=== PATIENT | male | born 1960 | race Caucasian/White ===

== ENCOUNTER 2020-05-03 13:18 | Outpatient (CLI) | payer OTHER, SELFPAY ==
--- NOTE | 2020-05-03 13:29 | ECHO_ITS ---
Patient Info Name: Rao Quesada Age: 60 years : 1960 Gender: Male Ht: 68 in Wt: 155 lbs BSA: 1.84 m2 HR: 58 bpm BP: 157 / 78 mmHg Technical Quality: Good Exam Date: 05/03/2020 1:36 PM Exam Location: [facility] Patient Status: Outpatient Admit Date: 05/03/2020 Staff Ordering Physician: Hortensia Martínez MD Chief Of Police: Luz Elena Urrutia RDCS Attending Provider: Hortensia Martínez MD Referring Physician: Tanya GOMEZ; Exam Type: CA echo doppler color flow Study Info Indications - aortic stenosis Complete two-dimensional, color flow and Doppler transthoracic echocardiogram is performed. Summary 1. Left ventricular chamber dimension is normal. 2. Left ventricular systolic function is normal, estimated at 65-70%. 3. There is mildly increased left ventricular wall thickness. 4. The left ventricular diastolic function is grade I diastolic dysfunction. 5. E/e' 11 is mildly elevated. 6. Global longitudinal strain is normal at -21.9%. 7. Left atrial chamber dimension is mildly enlarged. 8. There is severe aortic valve sclerosis. 9. There is mild aortic valve regurgitation. 10. There is moderate aortic valve stenosis with a peak velocity of 311 cm/s, mean gradient of 22 mmHg, and aortic valve area of 1.3 cm2. 11. The mitral valve has mildly calcified annulus. 12. There is mild mitral valve regurgitation. 13. There is trace tricuspid valve regurgitation. 14. No pulmonary hypertension, estimated pulmonary arterial systolic pressure is 30 mmHg. Left Ventricle E/e' 11 is mildly elevated. Global longitudinal strain is normal at -21.9%. Left ventricular chamber dimension is normal. Left ventricular systolic function is normal, estimated at 65-70%. There is mildly increased left ventricular wall thickness. The left ventricular diastolic function is grade I diastolic dysfunction. Right Ventricle Right ventricular chamber dimension is normal. Right ventricular systolic function is normal. Left Atria Left atrial chamber dimension is mildly enlarged. Right Atria Right atrial chamber dimension is normal. Aortic Valve The aortic valve is trileaflet. There is severe aortic valve sclerosis. There is moderate aortic valve stenosis with a peak velocity of 311 cm/s, mean gradient of 22 mmHg, and aortic valve area of 1.3 cm2. There is mild aortic valve regurgitation. Pulmonic Valve There is no pulmonic regurgitation. Mitral Valve The mitral valve has mildly calcified annulus. There is no mitral valve stenosis. There is mild mitral valve regurgitation. Tricuspid Valve There is trace tricuspid valve regurgitation. No pulmonary hypertension, estimated pulmonary arterial systolic pressure is 30 mmHg. Pericardium/Pleural There is no pericardial effusion. Inferior Vena Cava Normal inferior vena cava with >50% collapse upon inspiration consistent with normal right atrial pressure, 5 mmHg. Aorta The aortic root size at the sinus of Valsalva is normal. Left Ventricular Outflow Tract Name Value Normal LVOT 2D LVOT Diameter 2.0 cm LVOT Doppler LVOT Peak Gradient 7 mmHg
== END 2020-05-03 13:19 | disposition home or self-care (01) ==
LOC: ANHCARD 13:19
PROVIDERS: PCP Family Medicine; Visit Provider Family Medicine
DX: I35.0 Nonrheumatic aortic (valve) stenosis (principal); I51.7 Cardiomegaly
CPT/HCPCS: 93306

== ENCOUNTER 2022-10-14 12:36 | Outpatient (CLI) | payer OTHER, SELFPAY ==
--- NOTE | 2022-10-14 12:53 | ECHO_ITS ---
Patient Info Name: Rao Quesada Age: 62 years : 1960 Gender: Male Ht: 68 in Wt: 155 lbs BSA: 1.84 m2 HR: 65 bpm BP: 164 / 79 mmHg Technical Quality: Good Exam Date: 10/14/2022 1:36 PM Exam Location: [facility] Patient Status: Outpatient Admit Date: 10/14/2022 Staff Ordering Physician: Mike Rush PA-C Plug Grower: Jason Mcintosh RDCS Attending Provider: Mike Rush PA-C Referring Physician: Victor Manuel HAMILTON; Exam Type: CA echo doppler color flow Study Info Indications I35.0 - Nonrheumatic aortic (valve) stenosis Complete two-dimensional, color flow and Doppler transthoracic echocardiogram is performed. Summary 1. Complete two-dimensional, color flow and Doppler transthoracic echocardiogram is performed. 2. Left ventricular chamber dimension is normal. 3. Left ventricular systolic function is normal, estimated at 65-70%. 4. There is mildly increased left ventricular wall thickness. 5. The left ventricular diastolic function is grade I diastolic dysfunction. 6. E/e' 12 is mildly elevated. 7. Left atrial chamber dimension is moderately enlarged. 8. There is severe aortic valve sclerosis. 9. There is severe aortic valve stenosis with a peak velocity of 481 cm/s, mean gradient of 56 mmHg, and aortic valve area of 0.8 cm2. 10. There is mild aortic valve regurgitation. 11. There is trace mitral valve regurgitation. Left Ventricle E/e' 12 is mildly elevated. Left ventricular chamber dimension is normal. Left ventricular systolic function is normal, estimated at 65-70%. There is mildly increased left ventricular wall thickness. The left ventricular diastolic function is grade I diastolic dysfunction. Right Ventricle Right ventricular systolic function is normal and with normal TAPSE 2.4 cm. Right ventricular chamber dimension is normal. Left Atria Left atrial chamber dimension is moderately enlarged. Right Atria Right atrial chamber dimension is normal. Aortic Valve The aortic valve is trileaflet. There is severe aortic valve sclerosis. There is severe aortic valve stenosis with a peak velocity of 481 cm/s, mean gradient of 56 mmHg, and aortic valve area of 0.8 cm2. There is mild aortic valve regurgitation. Pulmonic Valve There is no pulmonic regurgitation. Mitral Valve There is no mitral valve stenosis. There is trace mitral valve regurgitation. Tricuspid Valve There is no tricuspid valve regurgitation. Pericardium/Pleural There is no pericardial effusion. Inferior Vena Cava Normal inferior vena cava with >50% collapse upon inspiration consistent with normal right atrial pressure, 5 mmHg. Aorta The aortic root size at the sinus of Valsalva is normal. Left Ventricular Outflow Tract Name Value Normal LVOT 2D LVOT Diameter 2.0 cm LVOT Doppler LVOT Peak Gradient 6 mmHg LVOT Mean Gradient 4 mmHg LVOT VTI 33 cm LVOT VTI/AV VTI Ratio 0.3 LVOT Stroke Volume 101 ml LVOT CO
== END 2022-10-14 12:37 | disposition home or self-care (01) ==
PROVIDERS: PCP Physician Assistant; Visit Provider Physician Assistant
DX: N40.0 Benign prostatic hyperplasia without lower urinary tract symptoms (principal); I10 Essential (primary) hypertension; E11.9 Type 2 diabetes mellitus without complications; I08.0 Rheumatic disorders of both mitral and aortic valves
CPT/HCPCS: 93306

== ENCOUNTER 2022-10-24 09:20 | Outpatient (CLI) | payer OTHER, SELFPAY ==
[2022-10-24 19:07] LABS: Kit Draw Collected
== END 2022-10-24 09:21 | disposition home or self-care (01) ==
LOC: ANHGOSHLAB 09:22
PROVIDERS: PCP Physician Assistant; Visit Provider Physician Assistant
DX: N40.0 Benign prostatic hyperplasia without lower urinary tract symptoms (principal); I35.0 Nonrheumatic aortic (valve) stenosis; E11.9 Type 2 diabetes mellitus without complications; I10 Essential (primary) hypertension; Z12.5 Encounter for screening for malignant neoplasm of prostate
CPT/HCPCS: 36415

== ENCOUNTER 2023-06-02 15:18 | Outpatient (CLI) | payer MEDICARE, SELFPAY ==
[2023-06-02 19:19] LABS: Basophils Absolute Auto 0.1 K/mm3 (0.0-0.1); Basophils Percent Auto 1.7 % (0.2-1.2); Eosinophils Absolute Auto 0.2 K/mm3 (0-0.3); Eosinophils Percent Auto 4.5 % (0-4.4); Hematocrit 37.4 % (42.0-52.0); Hemoglobin 12.6 g/dL (14.0-18.0); Immature Granulocyte Absolute 0.01 K/mm3 (0.00-0.031); Immature Granulocyte Percent A 0.2 % (0-0.5); Lymphocytes Absolute Auto 1.05 K/mm3 (0.9-3.2); Lymphocytes Percent Auto 22.4 % (18.3-44.2); Mean Corpuscular HGB Conc 33.7 g/dl (32-36); Mean Corpuscular Hemoglobin 31.3 pg (26-34); Mean Platelet Volume 9.2 fl (7.4-10.4); Monocytes Absolute Auto 0.5 K/mm3 (0.1-0.6); Monocytes Percent Auto 11.1 % (2.6-8.5); Neutrophils Absolute Auto 2.8 K/mm3 (1.3-6.7); Neutrophils Percent Auto 60.1 % (45.5-73.1); Platelet Count Result 186 k/mm3 (150-375); Red Blood Count 4.02 M/mm3 (4.6-6.20); Red Cell Distribution Width 12.5 % (11.5-14.5); White Blood Count 4.7 K/mm3 (4.5-10.0)
== END 2023-06-02 15:19 | disposition home or self-care (01) ==
LOC: ANHGOSHLAB 15:19
PROVIDERS: Visit Provider Physician Assistant
DX: D72.819 Decreased white blood cell count, unspecified (principal)
CPT/HCPCS: 36415; 85025

== ENCOUNTER 2023-12-22 19:41 | Emergency (ER) | payer MEDICARE, SELFPAY ==
--- NOTE | ~2023-12-22 | XR_ITS ---
EXAMINATION: XR chest 1V portable DATE: 12/22/2023 20:33 INDICATION: Chest pain TECHNIQUE: frontal view of the chest was obtained. COMPARISON: None FINDINGS: Mild linear discoid atelectasis in the bilateral lower lung zones. No other airspace opacities, pulmo nary edema, pleural effusion or pneumothorax. The cardiomediastinal silhouette is normal. IMPRESSION: 1. Mild discoid atelectasis at the bilateral lower lung zones. No other acute cardiopulmonary disease . Reviewed, dictated and finalized at location A. H DRIVER IMPRESSION: 1. Mild discoid atelectasis at the bilateral lower lung zones. No other acute c ardiopulmonary disease.
--- NOTE | 2023-12-22 19:42 | ECG_ITS ---
Measurements Intervals [place] Rate: 57 P: 58 AR: 154 QRS: 72 QRSD: 102 T: 44 QT: 421 QTc: 410 Interpretive Statements SINUS BRADYCARDIA MINIMAL VOLTAGE CRITERIA FOR LVH, CONSIDER NORMAL VARIANT [MEETS CRITERIA IN ONE OF: R(aVL), S(V1), R(V5), R(V5/V6)+S(V1)] ABNORMAL ECG NO PREVIOUS ECG AVAILABLE FOR COMPARISON Electronically Signed On 12-23-2023 11:44:29 POWER SYSTEM OPERATOR by Farrukh Miranda M.D.
[2023-12-22 19:47] VITALS: BP 177/76; PULSE 66; RESP 18; TEMP 36.6; O2SAT 100
[2023-12-22 20:29] LABS: Basophils Absolute Auto 0.1 K/mm3 (0.0-0.1); Basophils Percent Auto 1.1 % (0.2-1.2); Eosinophils Absolute Auto 0.2 K/mm3 (0-0.3); Eosinophils Percent Auto 4.1 % (0-4.4); Hematocrit 38.9 % (42.0-52.0); Hemoglobin 13.3 g/dL (14.0-18.0); Immature Granulocyte Absolute 0.01 K/mm3 (0.00-0.031); Immature Granulocyte Percent A 0.2 % (0-0.5); Lymphocytes Absolute Auto 1.37 K/mm3 (0.9-3.2); Lymphocytes Percent Auto 25.3 % (18.3-44.2); Mean Corpuscular HGB Conc 34.2 g/dl (32-36); Mean Corpuscular Hemoglobin 31.2 pg (26-34); Mean Corpuscular Volume 91.3 fl (80-100); Mean Platelet Volume 8.7 fl (7.4-10.4); Monocytes Absolute Auto 0.7 K/mm3 (0.1-0.6); Neutrophils Absolute Auto 3.1 K/mm3 (1.3-6.7); Neutrophils Percent Auto 57.3 % (45.5-73.1); Platelet Count Result 182 k/mm3 (150-375); Red Blood Count 4.26 M/mm3 (4.6-6.20); Red Cell Distribution Width 12.6 % (11.5-14.5); White Blood Count 5.4 K/mm3 (4.5-10.0)
[2023-12-22 20:39] LABS: Magnesium 2.2 mg/dL (1.6-2.3)
[2023-12-22 20:40] LABS: Alanine Aminotransferase 25 U/L (6-50); Albumin Level 4.3 g/dL (3.5-5.1); Alkaline Phosphatase 72 U/L (38-126); Anion Gap 7 mmol/L (8-16); Aspartate Amino Transferase 37 U/L (17-59); Bilirubin,Total 0.8 mg/dL (0.2-1.3); Blood Urea Nitrogen 14 mg/dL (9-20); Calcium 9.3 mg/dL (8.4-10.2); Carbon Dioxide 27 mmol/L (22-30); Chloride 98 mmol/L (98-107); Estimated CRCL calculation 88 ml/min; Estimated Glomerular Filt Rate > 60; Glucose 105 mg/dL (65-110); Lipase 85 U/L (23-300); Sodium 132 mmol/L (137-145)
[2023-12-22 20:51] LABS: Troponin I < 0.012 ng/mL (0.000-0.034)
--- NOTE | 2023-12-22 20:51 | ED.CHESTPAIN ---
HPI - Chest Pain General Chief Complaint: Chest Pain Stated Complaint: chest pain Time Seen by Provider: 12/22/23 19:55 Source: patient and family Limitations: no limitations History of Present Illness HPI narrative: Patient is a 63-year-old male presents to the emergency department complaining of chest pain. Patient states the pain started around 1:00 p.m. 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 Patient denies any shortness of breath. Patient denies any recent injuries or recent illness. Patient admits to history of aortic stenosis for which he is known to Dr. Nassar here and has had echocardiogram as recent as October and was told that they were surprised he was asymptomatic and if he develops any symptoms to come to the emergency department. Patient is to history of high blood pressure and diabetes. Patient denies being a smoker. Patient denies family history of early heart disease. Patient denies nausea, vomiting, diarrhea, melena, hematochezia, urinary discomfort abdominal pain, numbness, fever, history of blood clots, unilateral lower extremity swelling, weakness, sore throat, nasal congestion. Patient admits to chronic seasonal allergies for which she will frequently get a cough and admits to slight cough without any significant sputum production. Related Data Home Medications Medication Instructions Recorded Confirmed diclofenac sodium 1 % topical gel 2 g topical QID 05/19/22 11/12/23 (Voltaren Arthritis Pain) Allergies Allergy/AdvReac Type Severity Reaction Status Date / Time No Known Allergies Allergy Verified 12/22/23 21:12 Review of Systems Review of Systems: A 10 system review of systems was completed on the patient and is negative except for what is stated in the HPI. Nursing and ancillary documentation was reviewed. FOR[facility]LY [facility], [facility] Family History Family History Mother Diabetes mellitus Sibling Diabetes mellitus Social History Social History Social History: caffeine daily- 1 pot coffee Smoking status: Never smoker Alcohol intake: current Drinks per week: 30 Alcohol use details: beer Substance use: never Substance use type: does not use Do You Feel Safe in your Home?: Yes Lack of Transportation: No Lack of Food: Never True Current Housing: I Have Housing Concerned About Future Housing: No Difficulty Paying Gas/Electric Bills: No Difficulty Paying for Meds: No Currently Unemployed: No Education: High School Diploma/GED Difficulty w/ Childcare or Family Care: No Comments At time of signature, I have reviewed and agree with nursing past medical, surgical, social and family history unless otherwise noted. Please see the nursing chart for further information. There is no relevant family history pertinent to the presenting complaint. Exam Narrative: CONST: No acute distress. Well nourished. HENMT: Head is normocephalic and atraumatic. Moist mucous membranes. No posterior oropharynx erythema. EYES: No conjunctival icterus, injection, or pallor. PERRL. NECK: No meningeal signs. No JVD. RESP: Able to speak in full sentences. Normal respiratory effort. CTAB. CARDIO: Regular rate. Regular rhythm. 2+ DP and radial pulses bilaterally. 2+ holosystolic murmur best appreciated at the aortic post. GI: Nondistended. No tenderness to palpation. Soft. : No CVA tenderness to palpation. SKIN: No rashes or lesions noted on exposed skin. NEURO: Oriented x3. Moves all extremit
[2023-12-22 21:02] LABS: D Dimer 0.32 ug/mL (<0.48)
[2023-12-22 21:04] LABS: Partial Thromboplastin Time 40.2 SECONDS (22.3-36.8)
[2023-12-22] MEDS: ASPIRIN 81 MG CHEWABLE TABLET 324 MG PO (21:08)
[2023-12-22 21:10] VITALS: BP 162/75; PULSE 67; RESP 15; O2SAT 100; O2SAT 99
[2023-12-22 21:18] LABS: Influenza A QL RT-PCR Negative (Negative); Influenza B QL RT-PCR Negative (Negative); RSV RNA, RT-PCR Negative (Negative); SARS-CoV-2 RNA PCR Negative (Negative)
[2023-12-22] MEDS: FAMOTIDINE 20 MG/2 ML VIAL IV PUSH (22:37)
[2023-12-22] MEDS: MAG HYDROX/AL HYDROX/SIMETH 30 ML UDC PO (22:37)
[2023-12-22 22:48] VITALS: BP 146/68; PULSE 60; RESP 15; O2SAT 100
--- NOTE | 2023-12-22 23:06 | ECG_ITS ---
Measurements Intervals [place] Rate: 60 P: 35 NM: 166 QRS: 68 QRSD: 101 T: 20 QT: 427 QTc: 429 Interpretive Statements SINUS RHYTHM NONSPECIFIC ST & T-WAVE ABNORMALITY ABNORMAL ECG COMPARED TO ECG 12/22/2023 19:46:25 SINUS RHYTHM NOW PRESENT T-WAVE ABNORMALITY NOW PRESENT Electronically Signed On 12-23-2023 11:45:57 FRUIT THINNER by Farrukh Miranda M.D.
[2023-12-22 23:17] LABS: Troponin I < 0.012 ng/mL (0.000-0.034)
[2023-12-22 23:31] VITALS: BP 148/64; PULSE 63; RESP 18; O2SAT 98
== END 2023-12-22 23:33 | disposition home or self-care (01) ==
PROVIDERS: Emergency Medicine; Emergency Provider Student in an Organized Health Care Education/Training Program; PCP Family Medicine
DX: R07.9 Chest pain, unspecified (principal); I35.0 Nonrheumatic aortic (valve) stenosis; R00.1 Bradycardia, unspecified; Z20.822 Contact with and (suspected) exposure to COVID-19
CPT/HCPCS: 36415; 71045; 80053; 83690; 83735; 84484; 85025; 85380; 85610; 85730; 87637; 93005; 96374; 99284; A9270

== ENCOUNTER 2024-01-11 00:14 | Day surgery (SDC) | payer MEDICARE, SELFPAY ==
[2024-01-08 15:35] VITALS: BMI 23.6
[2024-01-11] VITALS (12 sets, daily range): BP systolic 106–139; BP diastolic 59–94; PULSE 46–59; RESP 10–17; TEMP 36.7; O2SAT 97–98; BMI 24.6
[2024-01-11 07:33] LABS: Basophils Absolute Auto 0.1 K/mm3 (0.0-0.1); Basophils Percent Auto 1.5 % (0.2-1.2); Eosinophils Absolute Auto 0.3 K/mm3 (0-0.3); Eosinophils Percent Auto 7.8 % (0-4.4); Hematocrit 42.2 % (42.0-52.0); Hemoglobin 14.2 g/dL (14.0-18.0); Immature Granulocyte Absolute 0.01 K/mm3 (0.00-0.031); Immature Granulocyte Percent A 0.3 % (0-0.5); Lymphocytes Absolute Auto 1.09 K/mm3 (0.9-3.2); Lymphocytes Percent Auto 32.5 % (18.3-44.2); Mean Corpuscular HGB Conc 33.6 g/dl (32-36); Mean Corpuscular Hemoglobin 30.9 pg (26-34); Mean Corpuscular Volume 91.9 fl (80-100); Mean Platelet Volume 9.3 fl (7.4-10.4); Monocytes Absolute Auto 0.4 K/mm3 (0.1-0.6); Monocytes Percent Auto 12.2 % (2.6-8.5); Neutrophils Absolute Auto 1.5 K/mm3 (1.3-6.7); Neutrophils Percent Auto 45.7 % (45.5-73.1); Platelet Count Result 206 k/mm3 (150-375); Red Blood Count 4.59 M/mm3 (4.6-6.20); Red Cell Distribution Width 12.7 % (11.5-14.5); White Blood Count 3.4 K/mm3 (4.5-10.0)
[2024-01-11 07:42] LABS: Anion Gap 5 mmol/L (8-16); Blood Urea Nitrogen 13 mg/dL (9-20); Carbon Dioxide 26 mmol/L (22-30); Chloride 103 mmol/L (98-107); Estimated CRCL calculation 88 ml/min; Estimated Glomerular Filt Rate > 60; Glucose 119 mg/dL (65-110); Potassium 4.2 mmol/L (3.4-5.0); Sodium 134 mmol/L (137-145)
--- NOTE | 2024-01-11 08:18 | WPDMODSED ---
Moderate Sedation Note-Pt Data Patient Data Diagnosis: Symptomatic aortic stenosis Present Complaint: BRAND/ recent syncopal episodes/recent chest pain episode Procedure to be performed/Plan: right and left heart catheterization Allergies Allergy/AdvReac Type Severity Reaction Status Date / Time No Known Allergies Allergy Verified 01/11/24 07:19 Home Medications Medication Instructions Recorded Confirmed Type diclofenac sodium 1 % topical gel 2 g topical QID 05/19/22 01/08/24 History (Voltaren Arthritis Pain) sildenafil 50 mg tablet 50 mg PO DAILY PRN sexual activity 06/02/23 01/08/24 Rx #30 tabs lisinopril 20 mg tablet 20 mg PO DAILY #90 tabs 10/30/23 01/11/24 Rx gabapentin 100 mg capsule 100 mg PO BID #180 caps 11/11/23 01/08/24 Rx metformin 500 mg tablet,extended See Rx Instructions .Route 12/10/23 01/08/24 Rx release 24 hr .COMPLEX #90 tabs acetaminophen 500 mg tablet 500 mg PO Q6H PRN pain #30 tabs 12/22/23 01/08/24 Rx Current Medications: Active Medications Sodium Chloride (Normal Saline Iv) 500 mls @ 100 mls/hr IV CONT .Q5H GENE Sedation/Anesthesia: No previous sedation/anesthesia problems (including family history). [facility] Family History Family History Mother Diabetes mellitus Sibling Diabetes mellitus Social History Social History Social History: caffeine daily- 1 pot coffee Smoking status: Never smoker Alcohol intake: former Drinks per week: 30 Alcohol use details: beer Substance use: never Substance use type: does not use Do You Feel Safe in your Home?: Yes Lack of Transportation: No Lack of Food: Never True Current Housing: I Have Housing Concerned About Future Housing: No Difficulty Paying Gas/Electric Bills: No Difficulty Paying for Meds: No Currently Unemployed: No Education: High School Diploma/GED Difficulty w/ Childcare or Family Care: No Living arrangements: alone Spiritual care concerns: No Mod Sed Physical Exam Physical Exam Pre Procedural Exam: Normal: Appearance, Neck, Throat, Airway, Lungs, Heart Size ( grade 2/6 late peaking crescendo decrescendo murmur audible at the base no aortic regurgitation audible), Heart Rate, Heart Rhythm, Neuro Exam and Extremities Hours since solid foods: 12 Hours since liquid intake: 12 Mallampati Classification: class II Internal Medicine - PN: Obj Da Vital Signs Vital Signs: Vital Signs - 24 hr 01/11/24 07:21 Temperature 36.7 C Pulse Rate 54 L Respiratory Rate 14 Blood Pressure 130/64 Pulse Oximetry 97 Oxygen Delivery Room Air Meds/Results Medications: Active Medications Generic Name Dose Route Start Last Admin Trade Name Jorge PRN Reason Stop Dose Admin Sodium Chloride 500 mls @ 100 mls/hr 01/11/24 07:00 Normal Saline Iv IV CONT .Q5H GENE Labs 01/11/24 07:27 01/11/24 07:27 Labs: Laboratory Results - last 24 hr 01/11/24 07:27 WBC 3.4 L RBC 4.59 L Hgb 14.2 Hct 42.2 MCV 91.9 MCH 30.9 MCHC 33.6 RDW 12.7 Plt Count 206 MPV 9.3 Immature Gran % (Auto) 0.3 Neut % (Auto) 45.7 Lymph % (Auto) 32.5 [place] % (Auto) 12.2 H Eos % (Auto) 7.8 H Baso % (Auto) 1.5 H Lymph # (Auto) 1.09 [place] # (Auto) 0.4 Eos # (Auto) 0.3 Baso # (Auto) 0.1 Abs Immat Gran (auto) 0.01 Absolute Neuts (auto) 1.5 Absolute Nucleated RBC 0.0 Nucleated RBC % 0.0 Sodium 134 L Potassium 4.2 Chloride 103 Carbon Dioxide 26 Anion Gap 5 L BUN 13 Creatinine 0.70 Estim Creat Clear Calc 88 Estimated GFR > 60 Glucose 119 H Calcium 9.0 ASA Classification/Sedation ASA Classification/Sedation ASA Class: III Emergent: No Risks: Risks, benefits and alternatives explained and patient/family accepted plan for sedation. Patient re-evaluated immediately prior to sedation.
--- NOTE | 2024-01-11 08:21 | PM.IMHP ---
H&P: HPI History of Present Illness Date/Time: 01/11/24 08:21 Chief Complaint: recent syncopal episode, recent episode of chest pain, no symptoms today Narrative: this is a 63-year-old man who is known to me with a history of aortic valve stenosis who has been followed in the outpatient setting. He also has a history of hypertension managed with BILLY-inhibitor. Presents to the hospital today for scheduled right left heart catheterization this morning in anticipation of working him up is a candidate for aortic valve replacement. He had asymptomatic aortic stenosis until follow-up appointment October of 2023 at which time he reported episode of syncope while he was deer hunting. He at that time in the office was asymptomatic and because of this incident right left heart catheterization was recommended. At that time the patient declined wishing to consider this decision before going ahead. Between then and today he had a visit to the emergency room with an episode of chest pain in the middle of December. Following that incident he reconsider his decision and scheduled catheterization for today. Review of Systems Constitutional: Constitutional: Reports no additional constitutional complaints Eyes: Eyes: Reports no additional eye complaints ENT: Reports system reviewed and no additional complaints, except as documented Cardiovascular: Cardiovascular: Reports chest pain Respiratory: Respiratory: Reports dyspnea on exertion Gastrointestinal: Gastrointestinal: Reports no additional gastrointestinal complaints Musculoskeletal: Musculoskeletal: Reports no additional musculoskeletal complaints Integumentary/Breasts: Skin/Breast: Reports system reviewed and no additional complaints, except as docu Neurologic: Reports system reviewed and no additional complaints, except as documented [facility] Family History Family History Mother Diabetes mellitus Sibling Diabetes mellitus Social History Social History Social History: caffeine daily- 1 pot coffee Smoking status: Never smoker Alcohol intake: former Drinks per week: 30 Alcohol use details: beer Substance use: never Substance use type: does not use Do You Feel Safe in your Home?: Yes Lack of Transportation: No Lack of Food: Never True Current Housing: I Have Housing Concerned About Future Housing: No Difficulty Paying Gas/Electric Bills: No Difficulty Paying for Meds: No Currently Unemployed: No Education: High School Diploma/GED Difficulty w/ Childcare or Family Care: No Living arrangements: alone Spiritual care concerns: No Meds Home Medications and Allergies Home Medications Medication Instructions Recorded Confirmed Type diclofenac sodium 1 % topical gel 2 g topical QID 05/19/22 01/08/24 History (Voltaren Arthritis Pain) sildenafil 50 mg tablet 50 mg PO DAILY PRN sexual activity 06/02/23 01/08/24 Rx #30 tabs lisinopril 20 mg tablet 20 mg PO DAILY #90 tabs 10/30/23 01/11/24 Rx gabapentin 100 mg capsule 100 mg PO BID #180 caps 11/11/23 01/08/24 Rx metformin 500 mg tablet,extended See Rx Instructions .Route 12/10/23 01/08/24 Rx release 24 hr .COMPLEX #90 tabs acetaminophen 500 mg tablet 500 mg PO Q6H PRN pain #30 tabs 12/22/23 01/08/24 Rx Allergies Allergy/AdvReac Type Severity Reaction Status Date / Time No Known Allergies Allergy Verified 01/11/24 07:19 Vital Signs Vital Signs - 24 hr 01/11/24 07:21 Temperature 36.7 C Pulse Rate 54 L Respiratory Rate 14 Blood Pressure 130/64 Pulse Oximetry 97 Oxygen Delivery Room Air Exam Const: General: comfortable Other: Well-developed well-nourished white male comfortable cooperative no distress HENMT: Mouth: Yes moist mucous membranes Eyes: Sclera: sclerae normal Neck: Neck: supple and no JVD Other: delayed carotid pulses bilat
--- NOTE | 2024-01-11 09:23 | WPDCARDPROC ---
Cardiac Cath Procedure Note Date of procedure:: 01/11/24 Performing physician:: Leonard Stephens MD Indication:: symptomatic aortic stenosis Brief clinical history:: this is a 63-year-old man with hypertension who has been followed as an outpatient for aortic valve stenosis. He has recently become symptomatic with his with symptoms of chest pain and an episode of syncope. He is scheduled for right left heart catheterization today as part of his workup for aortic valve replacement. Procedure Procedure performed:: Right heart catheterization left heart catheterization with coronary angiography and measurement of aortic valve gradient and calculation of aortic valve area Sedation/Medication given:: fentanyl 25 mg Versed 2 mg case start time 836 a.m. case end time 9:20 a.m. sedation provided by Tiarra Martin RN, trained observer Access site:: right femoral artery, right femoral vein Estimated blood loss:: 25 cc Procedure note:: patient was brought to the cardiac catheterization lab in the postabsorptive state where the right femoral triangle was prepared and draped in the usual fashion. Anesthesia was provided with 20 cc lidocaine infiltrated locally. Using the modified Seldinger technique the right common femoral artery was punctured and a 6 Brazilian 45 cm sheath was placed into the central aorta. Following this the femoral vein was punctured and a standard 7 Brazilian vascular sheath was placed. I then used a balloon tipped [place] catheter to perform right heart catheterization measuring right-sided hemodynamics and thermodilution cardiac output was measured. The [place] catheter was then withdrawn. A 5 Brazilian angled pigtail catheter was then advanced into the central aorta and simple taney is pressures were documented from the side arm of the sheath and the catheter found to be superimposed will. Straight wire was used to attempt to cross the aortic valve but the orientation with the pigtail was not satisfactory. I then changed the pigtail for the 5 Brazilian JR4 catheter with a straight wire easily crossed the aortic valve and measured transvalvular gradient and calculated aortic valve area. I then used a 260 cm exchange length wire to attempt to exchange the right coronary catheter for a pigtail. During this exchange the wire came back into the central aorta. I therefore did not attempt to recross the valve is 2nd time for left ventricular injection. Following this the coronary arteries were engaged and injected using standard 5 Brazilian FL4 and JR4 catheters. The case was then terminated an angiogram was done of the femoral artery through the sheath after which a 6 Brazilian Angio-Seal device was deployed with a good hemostatic result. Procedure was well tolerated and uncomplicated. He left the director geophysical laboratory with no evidence of groin hematoma. Findings:: Hemodynamics: Right atrial pressure is 6 mmHg, right ventricle 29/0 end-diastolic 7, pulmonary artery pressure 27 over 8 mean pressure is 13. Pulmonary capillary wedge pressure mean of 9 mm Hg, central aortic pressure is 90 over 45 left ventricle 155 over 0 end-diastolic 12, mean aortic valve gradient is 48.23 mmHg thermodilution cardiac output is 4.8 liters/minute giving an index of 2.6. Aortic valve area calculates to 0.85 cm2. the left main coronary artery is short but nicely patent. The left anterior descending is a medium caliber artery extending down to around the apex. There is mild calcification seen of the proximal LAD but there are no flow-limiting lesions in the LAD identified. The circumflex is a moderate caliber artery which is also calcified proximally. There is a 50% stenosis seen in the all 2nd OM branch. There are no flow-limiting lesions seen in the circumflex. The right coronary artery is a moderate caliber and dominant to the posterior circulation the trunk of the right coronary artery is free of disease. There is a discrete 80-90%
== END 2024-01-11 13:04 | disposition home or self-care (01) ==
PROVIDERS: PCP Family Medicine; Visit Provider Specialist
PROC: 4A023N8 Measurement of Cardiac Sampling and Pressure, Bilateral, Percutaneous Approach (ICD-10-PCS; CPT 93453; principal; 2024-01-11 08:30)
DX: Z01.810 Encounter for preprocedural cardiovascular examination (principal); I35.0 Nonrheumatic aortic (valve) stenosis; I10 Essential (primary) hypertension; I25.10 Atherosclerotic heart disease of native coronary artery without angina pectoris; Z79.84 Long term (current) use of oral hypoglycemic drugs; Z86.79 Personal history of other diseases of the circulatory system
CPT/HCPCS: 36415; 80048; 85025; 93460; C1760; C1769; C1887; C1894; G0269; J1644; J2250; J3010; J7040

== ENCOUNTER 2024-07-20 14:54 | Emergency (ER) | payer MEDICARE, SELFPAY ==
--- NOTE | ~2024-07-20 | XR_ITS ---
EXAMINATION: XR knee LT min 4V DATE: 07/20/2024 15:42 INDICATION: Left knee pain and swelling TECHNIQUE: Anteroposterior, 2 oblique and crosstable lateral views of the left knee were obtained COMPARISON: None. FINDINGS: Alignment is normal. No fracture. Joint spaces appear normal on nonweightbearing imaging. Mild wagner lofemoral osteoarthritis with tiny marginal osteophytes along the patella with suggestion of mild sub articular cystic change at the cephalad aspect of the patellar apical ridge. There is also a small en thesophyte at the patellar insertion of the distal quadriceps tendon. No joint effusion. There is pro minent soft tissue swelling anterior to the patella and patellar tendon.. IMPRESSION: 1. Prominent prepatellar soft tissue swelling. No left knee joint effusion or acute osseous abnormali ty. Reviewed, dictated and finalized at location B. IMPRESSION: 1. Prominent prepatellar soft tissue swelling. No left knee joint effusion or a cute osseous abnormality.
--- NOTE | ~2024-07-20 | US_ITS ---
EXAMINATION: US venous doppler [facility] DATE: 07/20/2024 16:01 INDICATION: Left lower limb swelling and pain TECHNIQUE: Grayscale ultrasound images without and with compression and Doppler ultrasound images of the left lower extremity veins were obtained. COMPARISON: None. FINDINGS: The visualized portions of left common femoral vein, profunda (deep) femoral vein, femoral vein, popl iteal vein, peroneal veins, posterior tibial veins, gastrocnemius vein and greater saphenous vein out flow are patent. 4.8 x 1.3 x 2.2 cm anechoic Melara's cyst at the left popliteal fossa. IMPRESSION: 1. No deep venous thrombosis in the left lower limb. 2. Moderate-sized Melara's cyst at the left popliteal fossa. Reviewed, dictated and finalized at location B.
[2024-07-20 15:05] VITALS: BP 146/66; PULSE 72; RESP 16; TEMP 36.6; O2SAT 96
--- NOTE | 2024-07-20 15:44 | ED.EXTPRO ---
HPI - Extremity Problem General Chief complaint: Extremity Problem,Nontraumatic <Maira Shaw PA-C - Last Filed: 07/20/24 18:28> Stated complaint: left leg swelling <Maira Shaw PA-C - Last Filed: 07/20/24 18:28> Time Seen by Provider: 07/20/24 15:24 <Maira Shaw PA-C - Last Filed: 07/20/24 18:28> Focused HPI: this is a 64-year-old male that presents to the emergency department for left lower extremity swelling. Reports a couple of days ago he fell onto his left knee. Had swelling anterior to the knee. This is resolved, but now he has noted swelling into his lower leg which prompted him to be seen. Denies fevers or decreased range of motion. GENERAL: Well-appearing, well-nourished, and in no acute distress. HEAD: Normocephalic, atraumatic. CHEST: Clear to auscultation. ?No respiratory distress. HEART: Regular rate and rhythm.? NEURO: ?Alert and oriented x3. Patient screened in triage and initial orders placed.? ?Additional care and disposition to be based upon?diagnostic testing and treatment. <Maira Shaw PA-C - Last Filed: 07/20/24 18:28> History of Present Illness HPI Narrative: Agree with the HPI. Recent trauma left knee, swelling disappeared today but settled in the lower part of the leg. Came to rule out serious injury. No chest pain or shortness of breath. No history of DVT. <Jose Beckwith MD - Last Filed: 07/20/24 17:30> Related Data Home medications: Home Medications Medication Instructions Recorded Confirmed diclofenac sodium 1 % topical gel 2 g topical QID 05/19/22 06/21/24 (Voltaren Arthritis Pain) aspirin 81 mg tablet,delayed 81 mg PO DAILY 06/21/24 06/21/24 release (Adult Aspirin Regimen) atorvastatin 40 mg tablet 40 mg PO DAILY 06/21/24 06/21/24 cetirizine 10 mg tablet 10 mg PO DAILY PRN 06/21/24 06/21/24 clopidogrel 75 mg tablet 75 mg PO DAILY 06/21/24 06/21/24 metoprolol tartrate 25 mg tablet 12.5 mg PO BID 06/21/24 06/21/24 pyridoxine (vitamin B6) 100 mg 100 mg PO DAILY 06/21/24 06/21/24 tablet <Maira Shaw PA-C - Last Filed: 07/20/24 18:28> Allergies/Adverse reactions: Allergies Allergy/AdvReac Type Severity Reaction Status Date / Time No Known Allergies Allergy Verified 06/21/24 15:10 <Maira Shaw PA-C - Last Filed: 07/20/24 18:28> Review of Systems Review of Systems: All systems reviewed & are unremarkable except as noted in HPI and below <Maira Shaw PA-C - Last Filed: 07/20/24 18:28> Cardiovascular: Cardiovascular: Reports no additional cardiovascular complaints <Jose Beckwith MD - Last Filed: 07/20/24 17:30> Respiratory: Respiratory: Reports no additional respiratory complaints <Jose Beckwith MD - Last Filed: 07/20/24 17:30> Musculoskeletal: Musculoskeletal: Reports no additional musculoskeletal complaints, Reports arthralgias and Reports joint swelling <Jose Beckwith MD - Last Filed: 07/20/24 17:30> [facility] Past Medical History Medical History: Medical History (Updated 07/20/24 @ 18:28 by Maira Shaw PA-C) Aortic stenosis BPH (benign prostatic hyperplasia) Essential (primary) hypertension Type 2 diabetes, controlled, with peripheral neuropathy <Maira Shaw PA-C - Last Filed: 07/20/24 18:28> Family History Family History: Family History Mother Diabetes mellitus Sibling Diabetes mellitus <Maira Shaw PA-C - Last Filed: 07/20/24 18:28> Social History Social History: Social History Social History: caffeine daily- 1 pot coffee Smoking status: Never smoker Alcohol intake: former Drinks per week: 30 Alcohol use details: beer Substance use: never Substance use type: does not use Do You Feel Safe in your Home?: Yes Lack of Transportation: No Lack of Food: Never True Current Housing: I Have Housing Concerned
--- NOTE | 2024-07-20 16:18 | PC.NURSE ---
patient takes plavix for valve replacement and open heart surgery history
[2024-07-20 17:46] VITALS: BP 127/82; PULSE 78; RESP 18; TEMP 36.7; O2SAT 98
== END 2024-07-20 17:50 | disposition home or self-care (01) ==
PROVIDERS: Emergency Provider Emergency Medicine; PCP Family Medicine
DX: M25.462 Effusion, left knee (principal); W19.XXXA Unspecified fall, initial encounter; I10 Essential (primary) hypertension; E11.42 Type 2 diabetes mellitus with diabetic polyneuropathy
CPT/HCPCS: 73564; 93971; 99284